=== PATIENT | female | born 1990 | race Caucasian/White ===

== ENCOUNTER 2017-05-07 22:52 | Emergency (ER) | payer MEDICAID ==
[~2017-05-07] VITALS: Ht 172.7 cm; Wt 150.5 kg
[~2017-05-07 22:52] MED LIST: ANTIVERT 25MG25 MG PO; CORGARD20 MG PO; EXCEDRIN1 TAB PO; FLINTSTONES W/I1 CTB PO; GOUT MEDICATION; LEXAPRO 10MG10 MG PO; LEXAPRO20 MG PO; LYRICA 25MG CAP25 MG PO; MACROBID 1100 MG/CAP PO; MIRENA52 MG IU; MOBIC 7.5MG7.5 MG PO; MOTRIN 600600 MG/TAB PO; NEURONTIN100 MG/CAP PO; NORCO 325 MG-51 TAB PO; NORFLEX 10100 MG/TAB PO; PERCOCET 325 MG1 TA2 PO; PREDNISONE20 MG PO; PRENATAL1 TA1 PO; PRILOSEC10 MG PO; PROAIR HFA0.09 MG/AC IH; PROMETHAZINE12.5 M5 PO; ULTRAM 50MG TAB50 MG PO; ULTRAM ER100 MG PO; WELLBUTRIN XL300 M1 PO; ZOFRAN 4MG T4 MG/TAB PO
[2017-05-07 22:56] VITALS: BP 123/83
[2017-05-07] MEDS ORDERED: ZYLOPRIM 100MG100 MG PO (23:02)
[2017-05-07] MEDS ORDERED: PRILOSEC 20MG20 MG PO (23:02)
[2017-05-07] MEDS ORDERED: ANIMAL SHAPES +1 CTB (23:03)
[2017-05-07] MEDS ORDERED: VITAMIN B COMPL1 SGL PO (23:03)
[2017-05-07] MEDS ORDERED: PRENATAL1 TA7 PO (23:04)
[2017-05-07] MEDS ORDERED: OCUFLOX OPHTH DR5 ML OD (23:29)
[2017-05-07 23:42] VITALS: PULSE 91; TEMP 98.8
== END 2017-05-07 23:43 | disposition home or self-care (01) ==
LOC: COL.ER 22:52
DX: H10.11 Acute atopic conjunctivitis, right eye (principal); F32.9 Major depressive disorder, single episode, unspecified; F17.210 Nicotine dependence, cigarettes, uncomplicated

== ENCOUNTER 2017-07-16 13:19 | Day surgery (SDC) | payer MEDICAID ==
[~2017-07-16] VITALS: Ht 175.3 cm; Wt 149.8 kg
[~2017-07-16 13:19] MED LIST changes: +ANIMAL SHAPES +1 CTB; +OCUFLOX OPHTH DR5 ML OD; +PRENATAL1 TA7 PO; +PRILOSEC 20MG20 MG PO; +VITAMIN B COMPL1 SGL PO; +ZYLOPRIM 100MG100 MG PO
[2017-07-16 13:56] VITALS: BP 140/93; PULSE 101; TEMP 98.1
[2017-07-16] MEDS ORDERED: NORCO 325 MG-51 TAB PO (14:00)
[2017-07-16] MEDS ORDERED: IMODIUM 2MG CAPS2 MG PO (14:01)
[2017-07-16] MEDS ORDERED: FLONASEALLERGY NS (14:02)
[2017-07-16] MEDS ORDERED: COLESTID 1GM1 G PO (14:02)
[2017-07-16 15:34] VITALS: BP 128/61; PULSE 75; TEMP 98.4
[2017-07-16 15:45] VITALS: BP 130/69; PULSE 89
[2017-07-16 16:00] VITALS: BP 132/87; PULSE 91
== END 2017-07-16 16:20 | disposition home or self-care (01) ==
LOC: SDCO 13:19
DX: K64.1 Second degree hemorrhoids (principal); K92.1 Melena; F32.9 Major depressive disorder, single episode, unspecified; K12.0 Recurrent oral aphthae; K21.0 Gastro-esophageal reflux disease with esophagitis; Z90.49 Acquired absence of other specified parts of digestive tract; Z86.010 Personal history of colon polyps
CPT/HCPCS: OP; J2250; J2405; J3010; J7030

== ENCOUNTER 2019-05-05 15:37 | Emergency (ER) | payer MEDICAID ==
[~2019-05-05] VITALS: Ht 172.7 cm; Wt 139.5 kg
[~2019-05-05 15:37] MED LIST changes: +COLESTID 1GM1 G PO; +FLONASEALLERGY NS; +IMODIUM 2MG CAPS2 MG PO; +PROVERA 10MG10 MG PO
[2019-05-05 15:43] VITALS: BP 139/87; TEMP 97.3
[2019-05-05] MEDS ORDERED: LASIX 20MG TABL20 MG PO (16:08)
[2019-05-05 16:28] VITALS: PULSE 95
== END 2019-05-05 16:29 | disposition home or self-care (01) ==
LOC: COL.ER 15:37
DX: S80.01XA Contusion of right knee, initial encounter (principal); Z79.51 Long term (current) use of inhaled steroids; W19.XXXA Unspecified fall, initial encounter; Y92.096 Garden or yard of other non-institutional residence as the place of occurrence of the external cause

== ENCOUNTER 2019-09-20 01:33 | Emergency (ER) | payer MEDICAID ==
[~2019-09-20] VITALS: Ht 175.3 cm; Wt 139.1 kg
[~2019-09-20 01:33] MED LIST changes: +LASIX 20MG TABL20 MG PO
[2019-09-20 01:41] VITALS: TEMP 98.2
[2019-09-20] MEDS ORDERED: ZYRTEC5 MG PO (01:45)
[2019-09-20 02:43] LABS: BASO # 0.1 (0.0-0.2); BASO % 0.6 % (0.0-2.0); EOS # 0.5 (0.0-0.7); EOS % 4.1 % (0-4.0); GRAN # 6.6 (1.4-6.5); GRAN % 53.2 % (42.2-75.2); HEMATOCRIT 41.9 % (37.0-47.0); HEMOGLOBIN 14.2 g/dl (12.5-16.0); LYMPH # 4.5 (1.2-3.4); LYMPH % 36.4 % (20.0-51.0); MEAN CELL VOLUME 90 fl (80.0-100.0); MEAN CORPUSCULAR HEMOGLOBIN 31 pg (27.0-31.0); MEAN CORPUSCULAR HGB CONC 34 g/dl (33.0-37.0); MEAN PLATELET VOLUME 8.7 fl (7.4-10.4); MONO # 0.7 (0.1-0.6); MONO % 5.5 % (1.7-9.3); PLATELET COUNT 346 K/mm3 (130-400); RED BLOOD COUNT 4.66 M/mm3 (4.10-5.30); REDCELL DISTRIBUTION WIDTH-CV 12.8 % (11.5-14.5)
[2019-09-20 02:54] LABS: ALANINE AMINOTRANSFERASE 27 U/L (9-52); ALBUMIN 4.3 gm/dL (3.5-5.0); ALKALINE PHOSPHATASE 99 U/L (50-136); ANION GAP 10 mmol/L (7-16); AST,SGOT 20 U/L (15-37); BILIRUBIN,TOTAL 0.3 mg/dL (0.0-1.0); BLOOD UREA NITROGEN 12 mg/dL (7-17); CALCIUM 9.5 mg/dL (8.4-10.2); CARBON DIOXIDE 25 mmol/L (22-30); CHLORIDE 107 mmol/L (98-107); CREATININE, serum 0.76 (0.52-1.25); GLUCOSE 115 mg/dL (74-106); POTASSIUM 3.9 mmol/L (3.4-5.0); SODIUM 142 mmol/L (137-145); TOTAL PROTEIN 8.1 gm/dL (6.4-8.2)
[2019-09-20 03:21] LABS: TROPONIN-I < 0.012 ng/mL (0.000-0.035)
[2019-09-20 04:03] LABS: COLLECTION METHOD CLEAN CATCH
[2019-09-20 04:08] LABS: MUCOUS Present /lpf; PH 7 (5-8); URINE APPEARANCE Hazy; URINE BACTERIA None Seen /hpf; URINE BILIRUBIN Negative (NEGATIVE); URINE BLOOD Negative (NEGATIVE); URINE COLOR Yellow; URINE GLUCOSE Negative (NEGATIVE); URINE KETONE Negative (NEGATIVE); URINE LEUKOCYTE ESTERASE Negative (NEGATIVE); URINE NITRATE Negative (NEGATIVE); URINE PROTEIN(semi-quant) Negative (NEGATIVE); URINE RBC 0-2 /hpf; URINE UROBILINOGEN Negative (NEGATIVE)
[2019-09-20] MEDS ORDERED: ANTIVERT 25MG25 MG PO (04:25)
[2019-09-20] MEDS ORDERED: PHENERGAN 25 TA25 MG PO (04:25)
[2019-09-20 05:41] VITALS: BP 122/77; PULSE 67
== END 2019-09-20 05:41 | disposition home or self-care (01) ==
LOC: COL.ER 01:33
PROVIDERS: Emergency Medicine
DX: R42 Dizziness and giddiness (principal)
CPT/HCPCS: J2550; J7030

== ENCOUNTER 2020-07-01 20:08 | Emergency (ER) | payer MEDICAID ==
[~2020-07-01] VITALS: Ht 175.3 cm; Wt 148.2 kg
[~2020-07-01 20:08] MED LIST changes: +PHENERGAN 25 TA25 MG PO; +ZYRTEC5 MG PO
[2020-07-01 20:46] VITALS: TEMP 98.2
[2020-07-01 22:45] VITALS: BP 148/90; PULSE 67
== END 2020-07-01 22:50 | disposition home or self-care (01) ==
LOC: COL.ER 20:08
DX: M79.10 Myalgia, unspecified site (principal); F17.200 Nicotine dependence, unspecified, uncomplicated; Z20.828 Contact with and (suspected) exposure to other viral communicable diseases; Z88.0 Allergy status to penicillin

== ENCOUNTER 2020-07-07 00:54 | Emergency (ER) | payer MEDICAID ==
[~2020-07-07] VITALS: Ht 175.3 cm; Wt 148.2 kg
[2020-07-07 00:58] VITALS: BP 133/93; TEMP 97
[2020-07-07] MEDS ORDERED: BACTRIM DS 8001 TAB PO (01:29)
[2020-07-07] MEDS ORDERED: VOSOL 15 ML15 M1 OT (01:29)
[2020-07-07 01:36] VITALS: PULSE 78
== END 2020-07-07 01:36 | disposition home or self-care (01) ==
LOC: COL.ER 00:54
DX: H91.93 Unspecified hearing loss, bilateral (principal); F17.200 Nicotine dependence, unspecified, uncomplicated; Z90.49 Acquired absence of other specified parts of digestive tract; Z88.0 Allergy status to penicillin

== ENCOUNTER 2020-10-30 22:28 | Emergency (ER) | payer MEDICAID ==
[~2020-10-30] VITALS: Ht 175.3 cm; Wt 148.2 kg
[~2020-10-30 22:28] MED LIST changes: +BACTRIM DS 8001 TAB PO; +FLEXERIL 1010 MG/TAB PO; +VOSOL 15 ML15 M1 OT
[2020-10-30 22:37] VITALS: BP 152/96; TEMP 99.4
[2020-10-30] MEDS ORDERED: LEVOXYL0.05 MG PO (23:08)
[2020-10-30] MEDS ORDERED: FOLIC ACID800 MCG PO (23:08)
[2020-10-30] MEDS ORDERED: NORCO 325 MG-51 TAB PO (23:09)
[2020-10-30] MEDS ORDERED: PROAIR HFA0.09 MG/AC IH (23:10)
[2020-10-30] MEDS ORDERED: EXCEDRIN1 TAB PO (23:10)
[2020-10-30] MEDS ORDERED: EPI-PEN JR0.5 MG/ML IM (23:11)
[2020-10-30 23:57] VITALS: PULSE 102
[2020-10-30] MEDS ORDERED: CRUTCHES MC (23:59)
== END 2020-10-30 23:57 | disposition home or self-care (01) ==
LOC: COL.ER 22:28
DX: S93.402A Sprain of unspecified ligament of left ankle, initial encounter (principal); S80.01XA Contusion of right knee, initial encounter; J45.909 Unspecified asthma, uncomplicated; F17.210 Nicotine dependence, cigarettes, uncomplicated; Z88.0 Allergy status to penicillin; W01.0XXA Fall on same level from slipping, tripping and stumbling without subsequent striking against object, initial encounter
CPT/HCPCS: L4386

== ENCOUNTER 2020-12-09 11:05 | Emergency (ER) | payer MEDICAID ==
[~2020-12-09] VITALS: Ht 175.3 cm; Wt 144.5 kg
[~2020-12-09 11:05] MED LIST changes: +CRUTCHES MC; +EPI-PEN JR0.5 MG/ML IM; +FOLIC ACID800 MCG PO; +LEVOXYL0.05 MG PO
[2020-12-09 11:16] VITALS: BP 129/65; TEMP 98.1
[2020-12-09 12:17] VITALS: PULSE 63
[2020-12-09] MEDS ORDERED: SYNTHROID 0.0.025 MG PO (12:32)
== END 2020-12-09 12:17 | disposition home or self-care (01) ==
LOC: COL.ER 11:05
DX: H92.12 Otorrhea, left ear (principal); F17.210 Nicotine dependence, cigarettes, uncomplicated; Z96.22 Myringotomy tube(s) status; Z98.890 Other specified postprocedural states; Z90.49 Acquired absence of other specified parts of digestive tract; Z88.0 Allergy status to penicillin; Z79.890 Hormone replacement therapy; Z79.51 Long term (current) use of inhaled steroids

== ENCOUNTER 2021-09-16 12:52 | Emergency (ER) | payer MEDICAID ==
[~2021-09-16] VITALS: Ht 175.3 cm; Wt 145.5 kg
[~2021-09-16 12:52] MED LIST changes: +SYNTHROID 0.0.025 MG PO
[2021-09-16 13:05] VITALS: TEMP 98.6
[2021-09-16] MEDS ORDERED: FLEXERIL 1010 MG/TAB PO (14:56)
[2021-09-16 15:18] VITALS: BP 138/72; PULSE 76
== END 2021-09-16 15:19 | disposition home or self-care (01) ==
LOC: COL.ER 12:52
DX: S16.1XXA Strain of muscle, fascia and tendon at neck level, initial encounter (principal); F17.210 Nicotine dependence, cigarettes, uncomplicated; W08.XXXA Fall from other furniture, initial encounter
CPT/HCPCS: J1885

== ENCOUNTER 2022-01-16 11:02 | Emergency (ER) | payer OTHER, MEDICAID ==
[~2022-01-16] VITALS: Ht 175.3 cm; Wt 145.9 kg
[2022-01-16 11:45] VITALS: TEMP 96.9
[2022-01-16 12:49] VITALS: BP 115/84; PULSE 78
== END 2022-01-16 12:49 | disposition home or self-care (01) ==
LOC: COL.ER 11:02
DX: T20.12XA Burn of first degree of lip(s), initial encounter (principal); X13.0XXA Inhalation of steam and other hot vapors, initial encounter

== ENCOUNTER 2022-03-25 17:50 | Emergency (ER) | payer MEDICAID ==
[~2022-03-25] VITALS: Ht 175.3 cm; Wt 150.0 kg
[2022-03-25 18:09] VITALS: TEMP 99.2
[2022-03-25 18:51] LABS: COLLECTION METHOD CLEAN CATCH
[2022-03-25 19:08] LABS: MUCOUS Present (NOT PRESENT); URINE BACTERIA None Seen /hpf (NONE SEEN); URINE RBC 0-2 /hpf (0-2)
[2022-03-25 19:11] LABS: PH 5 (5-8); URINE APPEARANCE Clear (CLEAR/HAZY); URINE COLOR Yellow (YELLOW)
[2022-03-25 19:12] LABS: URINE BLOOD Negative (NEGATIVE); URINE GLUCOSE Negative (NEGATIVE); URINE KETONE Negative (NEGATIVE); URINE NITRATE Negative (NEGATIVE); URINE PROTEIN(semi-quant) Negative (NEGATIVE); URINE UROBILINOGEN Negative (NEGATIVE)
[2022-03-25 19:39] VITALS: BP 120/88; PULSE 84
== END 2022-03-25 19:39 | disposition home or self-care (01) ==
LOC: COL.ER 17:50
PROVIDERS: Emergency Medicine
DX: R10.30 Lower abdominal pain, unspecified (principal); Z90.49 Acquired absence of other specified parts of digestive tract; Z32.02 Encounter for pregnancy test, result negative

== ENCOUNTER → 2022-03-26 | Outpatient (CLI) | payer MEDICAID | LOC: COL.RAD 07:53 | DX: R10.2 Pelvic and perineal pain (principal) ==